=== PATIENT | female | born 1985 | race Hispanic/Latino ===

== ENCOUNTER 2023-07-14 21:18 | Inpatient (IN) | payer BC ==
[2023-07-14] MEDS ORDERED: NOREPINEPHRINE 8 MG/250 ML-D5W 250 ML ONE (21:28)
[2023-07-14] MEDS ORDERED: fentaNYL 50 mcg/mL 1 mL Vial ONE (21:54)
[2023-07-14] MEDS ORDERED: Acetaminophen 500 MG TAB ONE (21:55)
[2023-07-14] MEDS ORDERED: Ondansetron PF 4 MG/2 ML Vial ONE (22:04)
[2023-07-14 22:07] LABS: Hematocrit 37.6 % (34.9-44.5); Hemoglobin 12.5 g/dL (12.0-15.5); Mean Corpuscular HGB CONC 33.2 g/dL (32.0-36.0); Mean Corpuscular Volume 90.2 fl (81.6-98.3); Mean Platelet Volume 10.2 fl (7.4-10.4); Platelet Count 277 10x3/uL (150-450); RBC Distribution Width 12.9 % (11.5-14.5); Red Blood Cell (RBC) Count 4.17 10x6/uL (3.90-5.03); White Blood Cell (WBC) Count 27.4 10x3/uL (3.5-10.5)
[2023-07-14 22:21] LABS: ALT (SGPT) 44 U/L (8-55); AST (SGOT) 23 U/L (5-34); Albumin 3.6 g/dL (3.5-5.0); Alkaline Phosphatase 74 U/L (40-110); Anion Gap 15 mmol/L (10-20); BUN (Urea Nitrogen) 9 mg/dL (7.0-18.7); Bilirubin, Total 0.6 mg/dL (0.2-1.2); Calc. Creatinine Clearance 0 mL/min (70-130); Calcium 7.5 mg/dL (7.8-10.44); Carbon Dioxide 18 mmol/L (22-29); Chloride 109 mmol/L (98-107); Estimated GFR 107; Globulin 3.1 g/dL (2.4-3.5); Glucose 112 mg/dL (70-105); Potassium 3.9 mmol/L (3.5-5.1); Protein, Total 6.7 g/dL (6.0-8.3); Sodium 138 mmol/L (136-145)
[2023-07-14] MEDS ORDERED: Communication Order-Pharmacy FS PRN (22:48)
[2023-07-14 22:52] LABS: MDiff Complete? YES; RBC Morph Comment Within Normal Limits
[2023-07-14 22:53] LABS: Lymphocytes 5 % (21-51); Neutrophil 92 % (42-75); Reactive Lymphocytes 3 % (0-10)
[2023-07-14] MEDS ORDERED: Acetaminophen 325 MG TAB PO PRN (22:53)
[2023-07-14] MEDS ORDERED: Ondansetron ODT 4 MG TAB PO PRN (22:53)
[2023-07-14] MEDS ORDERED: Senokot S 8.6-50 MG TAB PO PRN (22:53)
[2023-07-14] MEDS ORDERED: NOREPINEPHRINE 8 MG/250 ML-D5W 250 ML IVPB SCH (23:59)
[2023-07-15] MEDS: Sodium Chloride 0.9% 1,000 ML IV SCH ×2 (00:35→06:08)
[2023-07-15 00:47] LABS: Lactic Acid 1.3 mmol/L (0.5-2.2)
[2023-07-15] MEDS ORDERED: Cefepime 2 GM in Sodium Chloride 0.9% 100 ML IVPB SCH (01:00)
[2023-07-15 03:36] LABS: Bilirubin Neg (Negative); Blood, Urine 25 (Negative); Clarity Clear (Clear); Glucose, Urine (Dipstick) Normal (Negative); Ketone, Urine Negative (Negative); Leukocyte Negative (Negative); Nitrite Negative (Negative); Protein, Urine (Dipstick) 15 mg/dl (Neg-Trace); Specific Gravity, Urine 1.015 (1.005-1.030); Urobilinogen Normal mg/dL (Less than 2); pH, Urine 6.5 (5.0-9.0)
[2023-07-15 03:50] LABS: Bacteria/HPF Rare-Few HPF (None Seen); CAUTI Indications for Culture Fever or rigors; RBC/HPF 0-3 HPF (0-3); Urine Culture Reflex No No; WBC/HPF 0-3 HPF (0-3)
[2023-07-15 04:26] LABS: Hematocrit 33.9 % (34.9-44.5); Hemoglobin 11.5 g/dL (12.0-15.5); Mean Corpuscular HGB CONC 33.9 g/dL (32.0-36.0); Mean Corpuscular Hemoglobin 29.7 pg (27.0-33.0); Mean Corpuscular Volume 87.6 fl (81.6-98.3); Mean Platelet Volume 11.1 fl (7.4-10.4); Platelet Count 231 10x3/uL (150-450); RBC Distribution Width 13.1 % (11.5-14.5); Red Blood Cell (RBC) Count 3.87 10x6/uL (3.90-5.03); White Blood Cell (WBC) Count 19.2 10x3/uL (3.5-10.5)
[2023-07-15 04:27] LABS: #Monocytes 0.6 10x3/uL (0.0-1.1); #Neutrophils 15.9 10x3/uL (1.5-8.4); %Basophils 0.1 % (0.0-2.0); %Eosinophils 0.1 % (0.0-6.0); %Lymphocytes 8.5 % (18.0-47.0); %Monocytes 3.1 % (0.0-10.0); %Neutrophils 87.7 % (40.0-75.0)
[2023-07-15 04:50] LABS: Anion Gap 15 mmol/L (10-20); BUN (Urea Nitrogen) 9 mg/dL (7.0-18.7); Calc. Creatinine Clearance 212 mL/min (70-130); Calcium 7.4 mg/dL (7.8-10.44); Carbon Dioxide 15 mmol/L (22-29); Chloride 113 mmol/L (98-107); Estimated GFR 115; Glucose 93 mg/dL (70-105); Potassium 4.9 mmol/L (3.5-5.1); Sodium 138 mmol/L (136-145)
[2023-07-15] MEDS: VANCOMYCIN 1.75 GM, Admixture Fee 1 EACH in Sodium Chloride 0.9% 500 ML IVPB SCH ×2 (06:08→17:53)
[2023-07-15] MEDS ORDERED: Lactated Ringer's 1,000 ML IV SCH (08:45)
[2023-07-15] MEDS ORDERED: Pantoprazole 40 MG VIAL IVP SCH (09:00)
[2023-07-15] MEDS: traMADol HCl 50 MG TAB PO PRN ×2 (15:05→21:10)
[2023-07-15] MEDS: Acetaminophen 325 MG TAB PO SCH ×2 (15:08→21:09)
[2023-07-15] MEDS: Sodium Chloride 0.45% 1,000 ML IV SCH (17:08)
[2023-07-15] MEDS: Famotidine 20 MG TAB PO SCH (21:10)
[2023-07-16 05:58] LABS: #Eosinphils 0.1 10x3/uL (0.0-0.5); #Monocytes 0.6 10x3/uL (0.0-1.1); #Neutrophils 9.5 10x3/uL (1.5-8.4); %Basophils 0.2 % (0.0-2.0); %Eosinophils 0.4 % (0.0-6.0); %Lymphocytes 13.5 % (18.0-47.0); %Monocytes 5.1 % (0.0-10.0); %Neutrophils 80.5 % (40.0-75.0); Hematocrit 32.8 % (34.9-44.5); Hemoglobin 10.7 g/dL (12.0-15.5); Mean Corpuscular HGB CONC 32.6 g/dL (32.0-36.0); Mean Corpuscular Hemoglobin 29.2 pg (27.0-33.0); Mean Corpuscular Volume 89.4 fl (81.6-98.3); Mean Platelet Volume 9.7 fl (7.4-10.4); Platelet Count 234 10x3/uL (150-450); RBC Distribution Width 13.2 % (11.5-14.5); Red Blood Cell (RBC) Count 3.67 10x6/uL (3.90-5.03); White Blood Cell (WBC) Count 11.8 10x3/uL (3.5-10.5)
[2023-07-16 06:14] LABS: ALT (SGPT) 31 U/L (8-55); AST (SGOT) 17 U/L (5-34); Albumin 3.1 g/dL (3.5-5.0); Alkaline Phosphatase 83 U/L (40-110); Anion Gap 11 mmol/L (10-20); BUN (Urea Nitrogen) 5 mg/dL (7.0-18.7); CRP (Inflammatory) 28.74 mg/dL (= or < 0.5); Calc. Creatinine Clearance 199 mL/min (70-130); Calcium 8.2 mg/dL (7.8-10.44); Carbon Dioxide 26 mmol/L (22-29); Chloride 106 mmol/L (98-107); Estimated GFR 114; Glucose 97 mg/dL (70-105); Magnesium 1.7 mg/dL (1.6-2.6); Potassium 3.6 mmol/L (3.5-5.1); Protein, Total 6.1 g/dL (6.0-8.3); Sodium 139 mmol/L (136-145)
[2023-07-16] MEDS: VANCOMYCIN 1.75 GM, Admixture Fee 1 EACH in Sodium Chloride 0.9% 500 ML IVPB SCH (06:20)
[2023-07-16 06:25] LABS: Bilirubin, Total 0.3 mg/dL (0.2-1.2)
[2023-07-16] MEDS: Sodium Chloride 0.45% 1,000 ML IV SCH (07:16)
[2023-07-16] MEDS: Acetaminophen 325 MG TAB PO SCH ×2 (07:16→15:29)
[2023-07-16] MEDS: Famotidine 20 MG TAB PO SCH ×2 (07:17→21:05)
[2023-07-16] MEDS: traMADol HCl 50 MG TAB PO PRN ×3 (07:17→21:03)
[2023-07-16] MEDS: Potassium Chloride 20 MEQ TAB PO SCH ×2 (09:12→16:44)
[2023-07-16] MEDS: cefTRIAXone\\ROCEPHIN 2 GM in Sodium Chloride 0.9% 100 ML IVPB SCH (12:27)
[2023-07-16] MEDS ORDERED: Polyethylene Glycol 3350 17 GM Packet PO PRN (12:44)
[2023-07-16] MEDS ORDERED: VANCOMYCIN 1.75 GM/350 ML BAG 1.75 GM in Premix Bag 1 BAG IVPB SCH (18:00)
[2023-07-16] MEDS: Magnesium Oxide 400 MG TAB PO SCH (21:03)
[2023-07-16] MEDS: Saccharomyces boulardii 250 MG CAP PO SCH (21:06)
[2023-07-17 04:41] LABS: #Eosinphils 0.1 10x3/uL (0.0-0.5); #Monocytes 0.5 10x3/uL (0.0-1.1); #Neutrophils 6.4 10x3/uL (1.5-8.4); %Basophils 0.1 % (0.0-2.0); %Eosinophils 0.8 % (0.0-6.0); %Monocytes 5.8 % (0.0-10.0); %Neutrophils 70.9 % (40.0-75.0); Hemoglobin 10.6 g/dL (12.0-15.5); Mean Corpuscular HGB CONC 32.1 g/dL (32.0-36.0); Mean Corpuscular Hemoglobin 28.7 pg (27.0-33.0); Mean Corpuscular Volume 89.4 fl (81.6-98.3); Mean Platelet Volume 9.9 fl (7.4-10.4); Platelet Count 273 10x3/uL (150-450); RBC Distribution Width 13.1 % (11.5-14.5); Red Blood Cell (RBC) Count 3.69 10x6/uL (3.90-5.03)
[2023-07-17 04:45] LABS: Anion Gap 12 mmol/L (10-20); BUN (Urea Nitrogen) 8 mg/dL (7.0-18.7); Calc. Creatinine Clearance 199 mL/min (70-130); Calcium 8.6 mg/dL (7.8-10.44); Carbon Dioxide 27 mmol/L (22-29); Chloride 104 mmol/L (98-107); Estimated GFR 114; Glucose 99 mg/dL (70-105); Potassium 3.4 mmol/L (3.5-5.1); Sodium 140 mmol/L (136-145)
[2023-07-17] MEDS: traMADol HCl 50 MG TAB PO PRN ×2 (10:18→20:36)
[2023-07-17] MEDS: Famotidine 20 MG TAB PO SCH ×2 (10:19→20:37)
[2023-07-17] MEDS: Magnesium Oxide 400 MG TAB PO SCH ×2 (10:19→20:37)
[2023-07-17] MEDS: cefTRIAXone\\ROCEPHIN 2 GM in Sodium Chloride 0.9% 100 ML IVPB SCH ×2 (11:26→21:13)
[2023-07-17] MEDS ORDERED: LevoFLOXacin 750 mg/D5W 750 MG in Premix Bag 1 BAG IVPB SCH (11:30)
[2023-07-17] MEDS: Saccharomyces boulardii 250 MG CAP PO SCH (20:37)
[2023-07-17] MEDS: valACYclovir 500 MG TAB PO SCH (21:11)
[2023-07-17] MEDS: Acetaminophen 325 MG TAB PO PRN (22:32)
[2023-07-18] MEDS: Famotidine 20 MG TAB PO SCH ×2 (08:31→20:21)
[2023-07-18] MEDS: Magnesium Oxide 400 MG TAB PO SCH ×2 (08:31→20:21)
[2023-07-18] MEDS: valACYclovir 500 MG TAB PO SCH ×2 (08:32→23:15)
[2023-07-18] MEDS: traMADol HCl 50 MG TAB PO PRN ×3 (08:36→20:20)
[2023-07-18] MEDS: Saccharomyces boulardii 250 MG CAP PO SCH (20:21)
[2023-07-18] MEDS: cefTRIAXone\\ROCEPHIN 2 GM in Sodium Chloride 0.9% 100 ML IVPB SCH (20:22)
[2023-07-19] MEDS: traMADol HCl 50 MG TAB PO PRN ×3 (02:12→22:04)
[2023-07-19 04:22] LABS: #Eosinphils 0.1 10x3/uL (0.0-0.5); #Monocytes 0.7 10x3/uL (0.0-1.1); #Neutrophils 5.5 10x3/uL (1.5-8.4); %Basophils 0.2 % (0.0-2.0); %Eosinophils 1.1 % (0.0-6.0); %Lymphocytes 24.7 % (18.0-47.0); %Monocytes 8.1 % (0.0-10.0); %Neutrophils 64.6 % (40.0-75.0); Anion Gap 13 mmol/L (10-20); BUN (Urea Nitrogen) 12 mg/dL (7.0-18.7); Calc. Creatinine Clearance 215 mL/min (70-130); Calcium 8.6 mg/dL (7.8-10.44); Carbon Dioxide 26 mmol/L (22-29); Chloride 101 mmol/L (98-107); Estimated GFR 116; Glucose 92 mg/dL (70-105); Hematocrit 33.2 % (34.9-44.5); Mean Corpuscular HGB CONC 33.1 g/dL (32.0-36.0); Mean Corpuscular Hemoglobin 29.3 pg (27.0-33.0); Mean Corpuscular Volume 88.5 fl (81.6-98.3); Mean Platelet Volume 9.4 fl (7.4-10.4); Platelet Count 343 10x3/uL (150-450); RBC Distribution Width 12.9 % (11.5-14.5); Red Blood Cell (RBC) Count 3.75 10x6/uL (3.90-5.03); Sodium 136 mmol/L (136-145); White Blood Cell (WBC) Count 8.5 10x3/uL (3.5-10.5)
[2023-07-19] MEDS: Famotidine 20 MG TAB PO SCH ×2 (09:56→21:57)
[2023-07-19] MEDS: Magnesium Oxide 400 MG TAB PO SCH ×2 (09:56→21:57)
[2023-07-19 10:42] VITALS: BMI 47.7
[2023-07-19] MEDS: valACYclovir 500 MG TAB PO SCH (21:56)
[2023-07-19] MEDS: cefTRIAXone\\ROCEPHIN 2 GM in Sodium Chloride 0.9% 100 ML IVPB SCH (21:56)
[2023-07-19] MEDS: Saccharomyces boulardii 250 MG CAP PO SCH (21:57)
[2023-07-20] MEDS: Acetaminophen 325 MG TAB PO PRN ×2 (03:16→22:18)
[2023-07-20] MEDS: traMADol HCl 50 MG TAB PO PRN ×4 (04:08→23:47)
[2023-07-20] MEDS: Magnesium Oxide 400 MG TAB PO SCH ×2 (10:07→22:17)
[2023-07-20] MEDS: Famotidine 20 MG TAB PO SCH ×2 (10:07→22:17)
[2023-07-20] MEDS: valACYclovir 500 MG TAB PO SCH ×2 (10:07→22:17)
[2023-07-20] MEDS ORDERED: Ketorolac Tromethamine 30 MG/ML VIAL IVP SCH (22:15)
[2023-07-20] MEDS: cefTRIAXone\\ROCEPHIN 2 GM in Sodium Chloride 0.9% 100 ML IVPB SCH (22:16)
[2023-07-20] MEDS: Saccharomyces boulardii 250 MG CAP PO SCH (22:17)
[2023-07-21 04:37] LABS: #Eosinphils 0.1 10x3/uL (0.0-0.5); #Monocytes 0.9 10x3/uL (0.0-1.1); #Neutrophils 7.1 10x3/uL (1.5-8.4); %Basophils 0.4 % (0.0-2.0); %Lymphocytes 22.5 % (18.0-47.0); %Monocytes 8.4 % (0.0-10.0); %Neutrophils 64.9 % (40.0-75.0); Hemoglobin 12.1 g/dL (12.0-15.5); Mean Corpuscular HGB CONC 32.7 g/dL (32.0-36.0); Mean Corpuscular Hemoglobin 28.9 pg (27.0-33.0); Mean Corpuscular Volume 88.5 fl (81.6-98.3); Mean Platelet Volume 9.3 fl (7.4-10.4); Platelet Count 427 10x3/uL (150-450); RBC Distribution Width 12.9 % (11.5-14.5); Red Blood Cell (RBC) Count 4.18 10x6/uL (3.90-5.03); White Blood Cell (WBC) Count 10.9 10x3/uL (3.5-10.5)
[2023-07-21 04:45] LABS: Anion Gap 16 mmol/L (10-20); BUN (Urea Nitrogen) 17 mg/dL (7.0-18.7); Calc. Creatinine Clearance 174 mL/min (70-130); Calcium 9.5 mg/dL (7.8-10.44); Carbon Dioxide 27 mmol/L (22-29); Chloride 98 mmol/L (98-107); Estimated GFR 100; Glucose 97 mg/dL (70-105); Magnesium 2.6 mg/dL (1.6-2.6); Potassium 4.5 mmol/L (3.5-5.1); Sodium 136 mmol/L (136-145)
[2023-07-21] MEDS: traMADol HCl 50 MG TAB PO PRN ×3 (05:44→22:10)
[2023-07-21] MEDS: Magnesium Oxide 400 MG TAB PO SCH ×2 (08:43→22:09)
[2023-07-21] MEDS: valACYclovir 500 MG TAB PO SCH ×2 (08:43→22:09)
[2023-07-21] MEDS: Famotidine 20 MG TAB PO SCH ×2 (08:43→22:10)
[2023-07-21] MEDS ORDERED: traMADol HCl 50 MG TAB PO SCH (13:00)
[2023-07-21] MEDS: cefTRIAXone\\ROCEPHIN 2 GM in Sodium Chloride 0.9% 100 ML IVPB SCH (22:09)
[2023-07-21] MEDS: Saccharomyces boulardii 250 MG CAP PO SCH (22:09)
[2023-07-22 05:20] LABS: #Basophils 0.1 10x3/uL (0.0-0.2); #Eosinphils 0.2 10x3/uL (0.0-0.5); #Monocytes 0.6 10x3/uL (0.0-1.1); #Neutrophils 6.1 10x3/uL (1.5-8.4); %Basophils 0.6 % (0.0-2.0); %Eosinophils 1.7 % (0.0-6.0); %Lymphocytes 21.2 % (18.0-47.0); %Monocytes 6.7 % (0.0-10.0); %Neutrophils 67.3 % (40.0-75.0); Anion Gap 15 mmol/L (10-20); BUN (Urea Nitrogen) 14 mg/dL (7.0-18.7); CK (CPK) 266 U/L (29-168); Calc. Creatinine Clearance 175 mL/min (70-130); Calcium 9.1 mg/dL (7.8-10.44); Carbon Dioxide 27 mmol/L (22-29); Chloride 98 mmol/L (98-107); Estimated GFR 105; Glucose 122 mg/dL (70-105); Hematocrit 37.5 % (34.9-44.5); Hemoglobin 12.3 g/dL (12.0-15.5); Mean Corpuscular HGB CONC 32.8 g/dL (32.0-36.0); Mean Corpuscular Hemoglobin 29.1 pg (27.0-33.0); Mean Corpuscular Volume 88.9 fl (81.6-98.3); Mean Platelet Volume 9.4 fl (7.4-10.4); Platelet Count 420 10x3/uL (150-450); Potassium 4.6 mmol/L (3.5-5.1); RBC Distribution Width 12.7 % (11.5-14.5); Red Blood Cell (RBC) Count 4.22 10x6/uL (3.90-5.03); Sodium 135 mmol/L (136-145); White Blood Cell (WBC) Count 9.1 10x3/uL (3.5-10.5)
[2023-07-22] MEDS: traMADol HCl 50 MG TAB PO PRN ×2 (05:28→22:58)
[2023-07-22 05:44] LABS: HIV (1/2) Antibody/Antigen Non-Reactive (NonReactive); HIV 1/2 INDEX 0.08 S/CO (<1.00)
[2023-07-22 06:56] LABS: Magnesium 2.3 mg/dL (1.6-2.6)
[2023-07-22] MEDS: valACYclovir 500 MG TAB PO SCH ×2 (07:58→20:52)
[2023-07-22] MEDS: Famotidine 20 MG TAB PO SCH ×2 (07:58→20:51)
[2023-07-22] MEDS: Magnesium Oxide 400 MG TAB PO SCH ×2 (07:58→20:51)
[2023-07-22] MEDS: Morphine 4 MG/ML VIAL SLOW IVP PRN ×4 (07:59→19:55)
[2023-07-22] MEDS: Saccharomyces boulardii 250 MG CAP PO SCH (20:51)
[2023-07-22] MEDS: cefTRIAXone\\ROCEPHIN 2 GM in Sodium Chloride 0.9% 100 ML IVPB SCH (20:51)
[2023-07-22] MEDS ORDERED: diphenhydrAMINE 25 MG CAP PO SCH (23:00)
[2023-07-23] MEDS: Morphine 4 MG/ML VIAL SLOW IVP PRN (03:38)
[2023-07-23 05:04] LABS: #Eosinphils 0.1 10x3/uL (0.0-0.5); #Monocytes 0.4 10x3/uL (0.0-1.1); #Neutrophils 7.1 10x3/uL (1.5-8.4); %Basophils 0.2 % (0.0-2.0); %Eosinophils 0.5 % (0.0-6.0); %Lymphocytes 21.1 % (18.0-47.0); %Monocytes 4.3 % (0.0-10.0); %Neutrophils 72.1 % (40.0-75.0); Hemoglobin 12.3 g/dL (12.0-15.5); Mean Corpuscular HGB CONC 32.4 g/dL (32.0-36.0); Mean Corpuscular Hemoglobin 28.6 pg (27.0-33.0); Mean Corpuscular Volume 88.4 fl (81.6-98.3); Mean Platelet Volume 9.4 fl (7.4-10.4); Platelet Count 441 10x3/uL (150-450); RBC Distribution Width 12.6 % (11.5-14.5); White Blood Cell (WBC) Count 9.8 10x3/uL (3.5-10.5)
[2023-07-23 05:16] LABS: Anion Gap 17 mmol/L (10-20); BUN (Urea Nitrogen) 14 mg/dL (7.0-18.7); CK (CPK) 244 U/L (29-168); Calc. Creatinine Clearance 179 mL/min (70-130); Calcium 8.9 mg/dL (7.8-10.44); Carbon Dioxide 23 mmol/L (22-29); Chloride 100 mmol/L (98-107); Estimated GFR 107; Glucose 101 mg/dL (70-105); Magnesium 2.3 mg/dL (1.6-2.6); Potassium 4.2 mmol/L (3.5-5.1); Sodium 136 mmol/L (136-145)
[2023-07-23] MEDS: traMADol HCl 50 MG TAB PO PRN ×3 (07:33→20:30)
[2023-07-23] MEDS: Ketorolac Tromethamine 30 MG/ML VIAL IVP PRN (09:28)
[2023-07-23] MEDS: Famotidine 20 MG TAB PO SCH ×2 (09:30→20:22)
[2023-07-23] MEDS: Magnesium Oxide 400 MG TAB PO SCH ×2 (09:30→20:22)
[2023-07-23] MEDS ORDERED: diphenhydrAMINE 50 MG/ML VIAL IVP SCH (10:00)
[2023-07-23] MEDS ORDERED: EPINEPHrine 1 MG/ML AMP IM SCH (10:00)
[2023-07-23] MEDS: diphenhydrAMINE 25 MG CAP PO PRN ×2 (14:49→20:22)
[2023-07-23] MEDS: Saccharomyces boulardii 250 MG CAP PO SCH (20:22)
[2023-07-23] MEDS: cefTRIAXone\\ROCEPHIN 2 GM in Sodium Chloride 0.9% 100 ML IVPB SCH (20:22)
[2023-07-24] MEDS: diphenhydrAMINE 25 MG CAP PO PRN ×2 (02:58→10:40)
[2023-07-24] MEDS: traMADol HCl 50 MG TAB PO PRN ×2 (03:04→13:38)
[2023-07-24 03:55] LABS: #Monocytes 0.3 10x3/uL (0.0-1.1); #Neutrophils 9.8 10x3/uL (1.5-8.4); %Basophils 0.2 % (0.0-2.0); %Eosinophils 0.1 % (0.0-6.0); %Lymphocytes 17.9 % (18.0-47.0); %Monocytes 2.4 % (0.0-10.0); %Neutrophils 78.2 % (40.0-75.0); Hematocrit 40.8 % (34.9-44.5); Mean Corpuscular HGB CONC 31.9 g/dL (32.0-36.0); Mean Corpuscular Volume 91.1 fl (81.6-98.3); Mean Platelet Volume 9.7 fl (7.4-10.4); Platelet Count 474 10x3/uL (150-450); RBC Distribution Width 12.7 % (11.5-14.5); Red Blood Cell (RBC) Count 4.48 10x6/uL (3.90-5.03); White Blood Cell (WBC) Count 12.6 10x3/uL (3.5-10.5)
[2023-07-24 04:07] LABS: Anion Gap 15 mmol/L (10-20); BUN (Urea Nitrogen) 13 mg/dL (7.0-18.7); Calc. Creatinine Clearance 165 mL/min (70-130); Calcium 8.9 mg/dL (7.8-10.44); Carbon Dioxide 27 mmol/L (22-29); Chloride 95 mmol/L (98-107); Estimated GFR 98; Glucose 103 mg/dL (70-105); Magnesium 2.4 mg/dL (1.6-2.6); Potassium 4.2 mmol/L (3.5-5.1); Sodium 133 mmol/L (136-145)
[2023-07-24] MEDS: Ketorolac Tromethamine 30 MG/ML VIAL IVP PRN (10:40)
[2023-07-24] MEDS: Magnesium Oxide 400 MG TAB PO SCH (10:40)
[2023-07-24] MEDS: Famotidine 20 MG TAB PO SCH (10:40)
[2023-07-24] MEDS ORDERED: Doxycycline 100 MG CAP PO SCH (14:45)
[2023-07-24] MEDS ORDERED: cefTRIAXone\\ROCEPHIN 2 GM in Sodium Chloride 0.9% 100 ML IVPB SCH (15:00)
[2023-07-24 17:33] VITALS: BP 104/48; TEMP 98.7
== END 2023-07-24 18:30 | disposition home health service (06) | DRG 871 ==
LOC: CSHERS 21:18 → CSHICU 23:51 → CSHTELE 07-15 12:51
PROVIDERS: ADMIT Family Medicine; ATTEND Family Medicine
PROC: 3E043XZ Introduction of Vasopressor into Central Vein, Percutaneous Approach (ICD-10-PCS; 2023-07-14)
PROC: 3E04329 Introduction of Other Anti-infective into Central Vein, Percutaneous Approach (ICD-10-PCS; 2023-07-14)
PROC: 5A09357 Assistance with Respiratory Ventilation, Less than 24 Consecutive Hours, Continuous Positive Airway Pressure (ICD-10-PCS; 2023-07-15)
PROC: 02HV33Z Insertion of Infusion Device into Superior Vena Cava, Percutaneous Approach (ICD-10-PCS; principal; 2023-07-19)
PROC: B5181ZA Fluoroscopy of Superior Vena Cava using Low Osmolar Contrast, Guidance (ICD-10-PCS; 2023-07-19)
DX: A40.1 Sepsis due to streptococcus, group B (principal); R65.21 Severe sepsis with septic shock; Z68.42 Body mass index [BMI] 45.0-49.9, adult; L03.115 Cellulitis of right lower limb; E66.01 Morbid (severe) obesity due to excess calories; K58.9 Irritable bowel syndrome, unspecified; D64.9 Anemia, unspecified; R73.9 Hyperglycemia, unspecified; G47.33 Obstructive sleep apnea (adult) (pediatric); E87.6 Hypokalemia; Z82.49 Family history of ischemic heart disease and other diseases of the circulatory system; Z90.49 Acquired absence of other specified parts of digestive tract; Z98.51 Tubal ligation status; Z83.3 Family history of diabetes mellitus; Z88.0 Allergy status to penicillin; Z91.018 Allergy to other foods; Z98.890 Other specified postprocedural states; Z79.899 Other long term (current) drug therapy
CPT/HCPCS: 36415; 36569; 71046; 80048; 80053; 80202; 81001; 82550; 83036; 83605; 83735; 85025; 86140; 87040; 87389; 93005; 93010; 93306; 93923; 94660; 94760; 94762; 96365; 96366; 96375; 97139; C1751; C9113; J0171; J0692; J0696; J1200; J1650; J1885; J1956; J2270; J2405; J3010; J3490; J7030; J7050; J7120; Q0162